=== PATIENT | male | born 1960 | race African-American/Black ===

== ENCOUNTER 2018-04-21 13:04 | Inpatient (IN) | payer OTHER ==
[2018-04-21 14:31] VITALS: BMI 27.7
--- NOTE | 2018-04-21 16:57 | HP ---
CIWA Score - CIWA Score Muscle Tremors: 2 Anxiety: 0-No Anxiety, at Ease Agitation: 0-Normal Activity Paroxysmal Sweats: No Perspiration Orientation: 0-Oriented Tacttile Disturbances: 0-None Auditory Disturbances: 0-None Visual Disturbances: 0-None (says last drink yesterday) Admission [facility] Chief Complaint: "here for detox from crack and beer" Allergies/Adverse Reactions: Allergies Allergy/AdvReac Type Severity Reaction Status Date / Time No Known Allergies Allergy Verified 04/21/18 16:28 History of Present Illness: Pt states drinking 6-8 cans/day of beer, [place], since 2010. Last detox was years ago from alcohol. Says he wants to be do the right thing and not use. Has 2 kids. Says smokes crack cocaine occ, but uses when he has money Exam Limitations: No Limitations - Ebola screening Have you traveled outside of the country in the last 21 days: No Have you had contact with anyone from an Ebola affected area: No Have you been sick,other than usual withdrawal symptoms: No Do you have a fever: No - Review of Systems Constitutional: No Symptoms Reported Patient History - Patient Medical History Hx Anemia: No Hx Asthma: No Hx Chronic Obstructive Pulmonary Disease (COPD): No Hx Cancer: No Hx Cardiac Disorders: No Hx Congestive Heart Failure: No Hx Hypertension: Yes (yes, does not know medication name) Hx Hypercholesterolemia: No Hx Pacemaker: No Hx Seizures: No Hx Dementia: No Hx Diabetes: No Hx Gastrointestinal Disorders: No Hx Liver Disease: No (denies) Hx Genitourinary Disorders: No Hx Sexually Transmitted Disorders: No (denies) Hx Renal Disease (ESRD): No Hx Thyroid Disease: No Hx Human Immunodeficiency Virus (HIV): No (denies, last test 2 years ago- negative) Hx Hepatitis C: No Hx Depression: No Hx Suicide Attempt: No Hx Bipolar Disorder: No Hx Schizophrenia: No - Patient Surgical History Past Surgical History: Yes Hx Neurologic Surgery: No Hx Cataract Extraction: No Hx Cardiac Surgery: No Hx Lung Surgery: No Hx Breast Surgery: No Hx Breast Biopsy: No Hx Abdominal Surgery: No Hx Appendectomy: No Hx Cholecystectomy: No Hx Genitourinary Surgery: No Hx Section: No Hx Orthopedic Surgery: No Other Surgical History: NECK SX- 2017, abscess of neck that was drained Anesthesia Reaction: No - PPD History Previous Implant?: Yes Documented Results: Negative w/o proof PPD to be Administered?: Yes - Reproductive History Patient is a Female of Child Bearing Age (11 -55 yrs old): No - Smoking Cessation Smoking history: Current every day smoker Have you smoked in the past 12 months: Yes Aproximately how many cigarettes per day: 7 Hx Chewing Tobacco Use: No Initiated information on smoking cessation: Yes 'Breaking Loose' booklet given: 04/21/18 - Substance & Tx. History Hx Substance Use: Yes (crack cocaine- amount of use depends on money available) Substance Use Type: Cocaine (cigarett) - Substances Abused Alcohol Route: Oral Frequency: Daily Amount used: BEER- 1 SIX PACK Age of first use: 52 Date of Last Use: 04/21/18 Cocaine Route: Smoking Frequency: Daily Amount used: 7 BAGS Age of first use: 52 Date of Last Use: 04/21/18 Family Disease History - Family Disease History Family History: Unremarkable (pt states no family h/o heart dz, DM) Admission Physical Exam [facility] - Vital Signs Vital Signs: Vital Signs - 24 hr 04/21/18 14:30 Temperature 97.8 F Pulse Rate 83 Respiratory 19 Rate Blood Pressure 165/99 - Physical General Appearance: Yes: Within Normal Limits HEENTM: Yes: Normal ENT Inspection, SHIRA Respiratory: Yes: Lungs Clear Neck: Yes: No masses,lesions,Nodules Cardiology: Yes: Regular Rhythm, Regular Rate, S1, S2 Abdominal: Yes: Non Tender Genitourinary: Yes: Within Normal Limits Back: Yes: Normal Inspection Musculoskeletal: Yes: full range of Motion, Gait Steady Extremities: Yes: Within Normal Limits Neurological: Yes: Within Normal Limits Integumentary: Yes: Within Normal Limits Lymphatic: Yes: Within Normal Limits - Diagnostic (1) Alcohol use disorder Current Visit: Yes Status: Acute (2) Cocaine abuse Current Visit: Yes Status: Acute (3) Cigarette smoker Current Visit: Yes Status: Acute (4) HTN (hypertension) Current Visit: Yes Status: Acute Qualifiers: Hypertension type: unspecified Qualified Code(s): I10 - Essential (primary ) hypertension Comment: pt does not remember medication that he is on Cleared for Admission [facility] - Detox or Rehab Detox Regimen/Protocol: Librium [facility] Breath Alcohol Content Breath Alcohol Content: 0 Urine Drug Screen - Results Drug Screen Negative: No Urine Drug Screen Results: COLTON-Cocaine
[2018-04-21] MEDS ORDERED: MAGNESIUM HYDROX 2400MG/30ML ORAL SUSPENSION 30 ML CUP PO PRN (17:14)
[2018-04-21] MEDS ORDERED: IBUPROFEN 400 MG TABLET (FP) PO PRN (17:14)
[2018-04-21] MEDS ORDERED: chlordiazePOXIDE HCL 25 MG CAPSULE PO ONE (17:14)
[2018-04-21] MEDS ORDERED: MAG HYDROX/AL HYDROX/SIMETH 30 ML UNIT-DOSE CUP PO PRN (17:14)
[2018-04-21] MEDS ORDERED: MAGNESIUM CITRATE 300 ML BOTTLE PO PRN (17:14)
[2018-04-21] MEDS ORDERED: P-EPHED 60MG/TRIPROLIDI 2.5MG TABLET PO PRN (17:14)
[2018-04-21] MEDS ORDERED: chlordiazePOXIDE HCL 25 MG CAPSULE PO PRN (17:14)
[2018-04-21] MEDS ORDERED: ACETAMINOPHEN 325 MG TABLET (FP) PO PRN (17:14)
[2018-04-21] MEDS ORDERED: guaiFENesin/D-METHORPHAN HB 10 ML UNIT-DOSE CUPS PO PRN (17:14)
[2018-04-21] MEDS ORDERED: MENTHOL/PHENOL 1 EACH UD MM PRN (17:14)
[2018-04-21] MEDS ORDERED: LOPERAMIDE HCL 2 MG CAPSULE PO PRN (17:14)
[2018-04-21] MEDS ORDERED: MELATONIN 5 MG TABLETS PO PRN (22:00)
[2018-04-21] MEDS: THIAMINE HCL 100 MG TABLET (FP) PO SCH (22:35)
[2018-04-21] MEDS: chlordiazePOXIDE HCL 25 MG CAPSULE PO SCH (23:55)
[2018-04-22] MEDS: chlordiazePOXIDE HCL 25 MG CAPSULE PO SCH ×4 (05:51→22:19)
[2018-04-22 09:53] LABS: HEMATOCRIT 38.6 % (35.4-49); HEMOGLOBIN 12.7 GM/dL (11.7-16.9); MCH 29.1 pg (25.7-33.7); MCHC 32.9 g/dl (32.0-35.9); MEAN CELL VOLUME 88.6 fl (80-96); MEAN PLT VOLUME 8.6 fl (7.5-11.1); PLATELET COUNT 213 K/MM3 (134-434); RBC 4.35 M/mm3 (4.00-5.60); RDW 15.7 % (11.9-15.9); WHITE BLOOD COUNT 5.5 K/mm3 (4.0-10.0)
[2018-04-22 10:17] LABS: CHLORIDE 110 mmol/L (98-107); POTASSIUM 4.1 mmol/L (3.5-5.1); SODIUM 143 mmol/L (136-145)
[2018-04-22] MEDS: PRENATAL VITAMINS W/ FOLIC ACID TABLET (FP) PO SCH (10:24)
[2018-04-22] MEDS: amLODIPine BESYLATE 5 MG TABLET (FP) PO SCH (10:24)
[2018-04-22 10:30] LABS: ALK PHOS 71 U/L (45-117); ANION GAP 6 (8-16); BILIRUBIN,TOTAL 0.2 mg/dL (0.2-1.0); BLOOD UREA NITROGEN 18 mg/dL (7-18); CALCIUM 8.5 mg/dL (8.5-10.1); CO2 27 mmol/L (21-32); CREATININE 1.4 mg/dL (0.7-1.3); GLUCOSE,RANDOM 184 mg/dL (74-106); SGOT/AST 19 U/L (15-37); SGPT/ALT 22 U/L (12-78); TOT PROT 6.2 g/dl (6.4-8.2)
[2018-04-22 11:50] LABS: SICKLE CELL SCREEN NEGATIVE (NEGATIVE)
--- NOTE | 2018-04-22 14:22 | PN ---
[facility] CIWA - CIWA Score Nausea/Vomitin Muscle Tremors: 3 Anxiety: 3 Agitation: 3 Paroxysmal Sweats: 3 Orientation: 0-Oriented Tacttile Disturbances: 0-None Auditory Disturbances: 0-None Visual Disturbances: 0-None Headache: 0-None Present CIWA-Ar Total Score: 15 S Progress Note (SOAP) Subjective: Sleep disturbance Shakes Sweats Objective: 04/22/18 14:21 A & O x 3 Sleepy, arousable Vital Signs Temperature 97.3 F L 04/22/18 13:10 Pulse Rate 80 04/22/18 13:10 Respiratory Rate 18 04/22/18 13:10 Blood Pressure 114/88 04/22/18 13:10 O2 Sat by Pulse Oximetry (%) Laboratory Last Values WBC 5.5 K/mm3 (4.0-10.0) 04/22/18 07:30 RBC 4.35 M/mm3 (4.00-5.60) 04/22/18 07:30 Hgb 12.7 GM/dL (11.7-16.9) 04/22/18 07:30 Hct 38.6 % (35.4-49) 04/22/18 07:30 MCV 88.6 fl (80-96) 04/22/18 07:30 MCH 29.1 pg (25.7-33.7) 04/22/18 07:30 MCHC 32.9 g/dl (32.0-35.9) 04/22/18 07:30 RDW 15.7 % (11.9-15.9) 04/22/18 07:30 Plt Count 213 K/MM3 (134-434) 04/22/18 07:30 MPV 8.6 fl (7.5-11.1) 04/22/18 07:30 Sickle Cell Screen Negative (NEGATIVE) 04/22/18 07:30 Sodium 143 mmol/L (136-145) 04/22/18 07:30 Potassium 4.1 mmol/L (3.5-5.1) 04/22/18 07:30 Chloride 110 mmol/L (98-107) H 04/22/18 07:30 Carbon Dioxide 27 mmol/L (21-32) 04/22/18 07:30 Anion Gap 6 (8-16) L 04/22/18 07:30 BUN 18 mg/dL (7-18) 04/22/18 07:30 Creatinine 1.4 mg/dL (0.7-1.3) H 04/22/18 07:30 Creat Clearance w eGFR 52.42 (>60) 04/22/18 07:30 Random Glucose 184 mg/dL (74-106) H 04/22/18 07:30 Calcium 8.5 mg/dL (8.5-10.1) 04/22/18 07:30 Total Bilirubin 0.2 mg/dL (0.2-1.0) 04/22/18 07:30 AST 19 U/L (15-37) 04/22/18 07:30 ALT 22 U/L (12-78) 04/22/18 07:30 Alkaline Phosphatase 71 U/L (45-117) 04/22/18 07:30 Total Protein 6.2 g/dl (6.4-8.2) L 04/22/18 07:30 Albumin 3.0 g/dl (3.4-5.0) L 04/22/18 07:30 RPR Titer Nonreactive (NONREACTIVE) 04/22/18 07:30 HIV 1&2 Antibody Screen Negative 04/22/18 07:30 HIV P24 Antigen Negative 04/22/18 07:30 LAbs noted, UA pending Assessment: 04/22/18 14:22 withdrawal sx Plan: continue detox
[2018-04-22 14:38] LABS: URINE APPEARANCE CLEAR; URINE BILIRUBIN NEGATIVE (<2.0 mg/dL); URINE COLOR LTYELLOW; URINE GLUCOSE (UA) NEGATIVE (NEGATIVE); URINE KETONE NEGATIVE (NEGATIVE); URINE LEUK ESTERASE NEGATIVE (NEGATIVE); URINE NITRITE NEGATIVE (NEGATIVE); URINE PROTEIN NEGATIVE (NEGATIVE); URINE UROBILINOGEN NEGATIVE mg/dL (0.2-1.0)
--- NOTE | 2018-04-22 22:12 | EKG ---
Test Reason : Blood Pressure : / mmHG Vent. Rate : 078 BPM Atrial Rate : 078 BPM P-R Int : 156 ms QRS Dur : 098 ms QT Int : 400 ms P-R-T Axes : 067 055 052 degrees QTc Int : 456 ms NORMAL SINUS RHYTHM WITH SINUS ARRHYTHMIA NORMAL ECG NO PREVIOUS ECGS AVAILABLE Confirmed by JACOB WEBB, MIGUELITO ([id number]) on 04/22/2018 10:11:32 PM Referred By: JAYLON LYNN Confirmed By:MIGUELITO JAMES MD
[2018-04-22] MEDS: THIAMINE HCL 100 MG TABLET (FP) PO SCH (22:19)
[2018-04-23] MEDS: chlordiazePOXIDE HCL 25 MG CAPSULE PO SCH ×3 (05:55→17:15)
[2018-04-23] MEDS: amLODIPine BESYLATE 5 MG TABLET (FP) PO SCH (10:21)
[2018-04-23] MEDS: PRENATAL VITAMINS W/ FOLIC ACID TABLET (FP) PO SCH (10:21)
--- NOTE | 2018-04-23 12:02 | PN ---
[facility] CIWA - CIWA Score Nausea/Vomitin-No Nausea/No Vomiting Muscle Tremors: None Anxiety: 4-Mod. Anxious/Guarded Agitation: 4-Moderately Restless Paroxysmal Sweats: 2 Orientation: 0-Oriented Tacttile Disturbances: 2-Mild Itch/Numbness/Burn Auditory Disturbances: 0-None Visual Disturbances: 0-None Headache: 0-None Present CIWA-Ar Total Score: 12 S Progress Note (SOAP) Subjective: Anxious, Sweating, Interrupted Sleep. Objective: PATIENT A & O X 3, OBSERVED AMBULATING ON UNIT. NO ACUTE DISTRESS. 04/23/18 12:02 Vital Signs Temperature 96.6 F L 04/23/18 09:07 Pulse Rate 84 04/23/18 09:07 Respiratory Rate 18 04/23/18 09:07 Blood Pressure 146/90 04/23/18 09:07 O2 Sat by Pulse Oximetry (%) Laboratory Tests 04/21/18 04/22/18 04/22/18 08:54 07:30 07:30 WBC 5.5 RBC 4.35 Hgb 12.7 Hct 38.6 MCV 88.6 MCH 29.1 MCHC 32.9 RDW 15.7 Plt Count 213 MPV 8.6 Sickle Cell Screen Negative Sodium Potassium Chloride Carbon Dioxide Anion Gap BUN Creatinine Creat Clearance w eGFR Random Glucose Calcium Total Bilirubin AST ALT Alkaline Phosphatase Total Protein Albumin Urine Color Ltyellow Urine Appearance Clear Urine pH 5.0 Ur Specific [place] 1.013 Urine Protein Negative Urine Glucose (UA) Negative Urine Ketones Negative Urine Blood Negative Urine Nitrite Negative Urine Bilirubin Negative Urine Urobilinogen Negative Ur Leukocyte Esterase Negative RPR Titer HIV 1&2 Antibody Screen Negative HIV P24 Antigen Negative 04/22/18 04/22/18 07:30 07:30 WBC RBC Hgb Hct MCV MCH MCHC RDW Plt Count MPV Sickle Cell Screen Sodium 143 Potassium 4.1 Chloride 110 H Carbon Dioxide 27 Anion Gap 6 L BUN 18 Creatinine 1.4 H Creat Clearance w eGFR 52.42 Random Glucose 184 H Calcium 8.5 Total Bilirubin 0.2 AST 19 ALT 22 Alkaline Phosphatase 71 Total Protein 6.2 L Albumin 3.0 L Urine Color Urine Appearance Urine pH Ur Specific [place] Urine Protein Urine Glucose (UA) Urine Ketones Urine Blood Urine Nitrite Urine Bilirubin Urine Urobilinogen Ur Leukocyte Esterase RPR Titer Nonreactive HIV 1&2 Antibody Screen HIV P24 Antigen LABS NOTED. HCV AB RESULT PENDING. 04/23/18 12:03 Assessment: 04/23/18 12:03 WITHDRAWAL SYMPTOMS. Plan: CONTINUE DETOX.
[2018-04-23] MEDS: THIAMINE HCL 100 MG TABLET (FP) PO SCH (22:18)
[2018-04-23] MEDS: chlordiazePOXIDE 5 MG CAPSULE PO SCH (22:18)
[2018-04-24] MEDS: chlordiazePOXIDE 5 MG CAPSULE PO SCH ×3 (05:42→18:10)
[2018-04-24] MEDS: PRENATAL VITAMINS W/ FOLIC ACID TABLET (FP) PO SCH (10:17)
[2018-04-24] MEDS: amLODIPine BESYLATE 5 MG TABLET (FP) PO SCH (10:17)
--- NOTE | 2018-04-24 12:54 | PN ---
[facility] Progress Note (SOAP) Subjective: Anxious, Fatigue. Objective: PATIENT A & O X 3. NO ACUTE DISTRESS. 04/24/18 12:53 Vital Signs Temperature 97.3 F L 04/24/18 09:22 Pulse Rate 70 04/24/18 09:22 Respiratory Rate 18 04/24/18 09:22 Blood Pressure 119/75 04/24/18 09:22 O2 Sat by Pulse Oximetry (%) Laboratory Tests 04/21/18 04/22/18 04/22/18 08:54 07:30 07:30 WBC 5.5 RBC 4.35 Hgb 12.7 Hct 38.6 MCV 88.6 MCH 29.1 MCHC 32.9 RDW 15.7 Plt Count 213 MPV 8.6 Sickle Cell Screen Negative Sodium Potassium Chloride Carbon Dioxide Anion Gap BUN Creatinine Creat Clearance w eGFR Random Glucose Calcium Total Bilirubin AST ALT Alkaline Phosphatase Total Protein Albumin Urine Color Ltyellow Urine Appearance Clear Urine pH 5.0 Ur Specific [place] 1.013 Urine Protein Negative Urine Glucose (UA) Negative Urine Ketones Negative Urine Blood Negative Urine Nitrite Negative Urine Bilirubin Negative Urine Urobilinogen Negative Ur Leukocyte Esterase Negative RPR Titer HIV 1&2 Antibody Screen Negative HIV P24 Antigen Negative 04/22/18 04/22/18 07:30 07:30 WBC RBC Hgb Hct MCV MCH MCHC RDW Plt Count MPV Sickle Cell Screen Sodium 143 Potassium 4.1 Chloride 110 H Carbon Dioxide 27 Anion Gap 6 L BUN 18 Creatinine 1.4 H Creat Clearance w eGFR 52.42 Random Glucose 184 H Calcium 8.5 Total Bilirubin 0.2 AST 19 ALT 22 Alkaline Phosphatase 71 Total Protein 6.2 L Albumin 3.0 L Urine Color Urine Appearance Urine pH Ur Specific [place] Urine Protein Urine Glucose (UA) Urine Ketones Urine Blood Urine Nitrite Urine Bilirubin Urine Urobilinogen Ur Leukocyte Esterase RPR Titer Nonreactive HIV 1&2 Antibody Screen HIV P24 Antigen LABS NOTED. Assessment: 04/24/18 12:53 WITHDRAWAL SYMPTOMS. Plan: CONTINUE DETOX. PATIENT SCHEDULED FOR D/C TOMORROW.
[2018-04-24] MEDS: THIAMINE HCL 100 MG TABLET (FP) PO SCH (23:02)
[2018-04-24] MEDS: chlordiazePOXIDE HCL 10 MG CAPSULE PO SCH (23:03)
[2018-04-25] MEDS: chlordiazePOXIDE HCL 10 MG CAPSULE PO SCH (05:58)
[2018-04-25 06:37] VITALS: BP 121/83; PULSE 66; TEMP 97
--- NOTE | 2018-04-25 16:42 | PN ---
[facility] Progress Note (SOAP) Subjective: Patient denies current Detox symptoms and reports that he feels well overall. Objective: PATIENT A & O X 3, OBSERVED AMBULATING ON UNIT. NO ACUTE DISTRESS. 04/25/18 16:40 Vital Signs Temperature 97.0 F L 04/25/18 06:37 Pulse Rate 66 04/25/18 06:37 Respiratory Rate 18 04/25/18 06:37 Blood Pressure 121/83 04/25/18 06:37 O2 Sat by Pulse Oximetry (%) Laboratory Tests 04/21/18 04/22/18 04/22/18 08:54 07:30 07:30 WBC 5.5 RBC 4.35 Hgb 12.7 Hct 38.6 MCV 88.6 MCH 29.1 MCHC 32.9 RDW 15.7 Plt Count 213 MPV 8.6 Sickle Cell Screen Negative Sodium Potassium Chloride Carbon Dioxide Anion Gap BUN Creatinine Creat Clearance w eGFR Random Glucose Calcium Total Bilirubin AST ALT Alkaline Phosphatase Total Protein Albumin Urine Color Ltyellow Urine Appearance Clear Urine pH 5.0 Ur Specific [place] 1.013 Urine Protein Negative Urine Glucose (UA) Negative Urine Ketones Negative Urine Blood Negative Urine Nitrite Negative Urine Bilirubin Negative Urine Urobilinogen Negative Ur Leukocyte Esterase Negative RPR Titer Hep C Ab Diagnostic Liver Fibrosis Interp HIV 1&2 Antibody Screen Negative HIV P24 Antigen Negative 04/22/18 04/22/18 04/23/18 07:30 07:30 11:15 WBC RBC Hgb Hct MCV MCH MCHC RDW Plt Count MPV Sickle Cell Screen Sodium 143 Potassium 4.1 Chloride 110 H Carbon Dioxide 27 Anion Gap 6 L BUN 18 Creatinine 1.4 H Creat Clearance w eGFR 52.42 Random Glucose 184 H Calcium 8.5 Total Bilirubin 0.2 AST 19 ALT 22 Alkaline Phosphatase 71 Total Protein 6.2 L Albumin 3.0 L Urine Color Urine Appearance Urine pH Ur Specific [place] Urine Protein Urine Glucose (UA) Urine Ketones Urine Blood Urine Nitrite Urine Bilirubin Urine Urobilinogen Ur Leukocyte Esterase RPR Titer Nonreactive Hep C Ab Diagnostic <0.1 Liver Fibrosis Interp HIV 1&2 Antibody Screen HIV P24 Antigen LABS NOTED. Assessment: 04/25/18 16:40 COMPLETION OF DETOX REGIMEN. Plan: PATIENT SCHEDULED FOR DISCHARGE FROM DETOX UNIT TODAY.
--- NOTE | 2018-04-25 16:47 | DS ---
[facility] Detox Discharge Summary Admission Date: 04/21/18 Discharge Date: 04/25/18 - History Present History: Alcohol Dependence, Cocaine Dependence Additional Comments: PATIENT GOING HOME TO RETURN TO WORK. PATIENT ADVISED TO CONSIDER LOCAL 12-STEP / AA / NA OUTPATIENT SUPPORT GROUPS FOR AFTERCARE. COPIES OF ALL LAB VALUES DRAWN WHILE ADMITTED FOR DETOX GIVEN TO PATIENT AT TIME OF DISCHARGE FROM DETOX UNIT. PATIENT WAS DISCHARGED FROM DETOX UNIT IN STABLE MEDICAL CONDITION. Pertinent Past History: HTN, Nicotine Dependence. - Physical Exam Results Vital Signs: Vital Signs Temperature 97.0 F L 04/25/18 06:37 Pulse Rate 66 04/25/18 06:37 Respiratory Rate 18 04/25/18 06:37 Blood Pressure 121/83 04/25/18 06:37 O2 Sat by Pulse Oximetry (%) Pertinent Admission Physical Exam Findings: WITHDRAWAL SYMPTOMS. Laboratory Tests 04/21/18 04/22/18 04/22/18 08:54 07:30 07:30 WBC 5.5 RBC 4.35 Hgb 12.7 Hct 38.6 MCV 88.6 MCH 29.1 MCHC 32.9 RDW 15.7 Plt Count 213 MPV 8.6 Sickle Cell Screen Negative Sodium Potassium Chloride Carbon Dioxide Anion Gap BUN Creatinine Creat Clearance w eGFR Random Glucose Calcium Total Bilirubin AST ALT Alkaline Phosphatase Total Protein Albumin Urine Color Ltyellow Urine Appearance Clear Urine pH 5.0 Ur Specific [place] 1.013 Urine Protein Negative Urine Glucose (UA) Negative Urine Ketones Negative Urine Blood Negative Urine Nitrite Negative Urine Bilirubin Negative Urine Urobilinogen Negative Ur Leukocyte Esterase Negative RPR Titer Hep C Ab Diagnostic Liver Fibrosis Interp HIV 1&2 Antibody Screen Negative HIV P24 Antigen Negative 04/22/18 04/22/18 04/23/18 07:30 07:30 11:15 WBC RBC Hgb Hct MCV MCH MCHC RDW Plt Count MPV Sickle Cell Screen Sodium 143 Potassium 4.1 Chloride 110 H Carbon Dioxide 27 Anion Gap 6 L BUN 18 Creatinine 1.4 H Creat Clearance w eGFR 52.42 Random Glucose 184 H Calcium 8.5 Total Bilirubin 0.2 AST 19 ALT 22 Alkaline Phosphatase 71 Total Protein 6.2 L Albumin 3.0 L Urine Color Urine Appearance Urine pH Ur Specific [place] Urine Protein Urine Glucose (UA) Urine Ketones Urine Blood Urine Nitrite Urine Bilirubin Urine Urobilinogen Ur Leukocyte Esterase RPR Titer Nonreactive Hep C Ab Diagnostic <0.1 Liver Fibrosis Interp HIV 1&2 Antibody Screen HIV P24 Antigen LABS NOTED. - Treatment Hospital Course: Detox Protocol Followed, Detoxed Safely, Responded well, Discharged Condition Good Patient has Accepted a Rehab Referral to: PT ADVISED TO CONSIDER LOCAL 12-STEP/ AA/NA OUTPATIENT SUPPORT GROUPS. - Medication Discharge Medications: Ambulatory Orders Amlodipine Besylate 5 mg PO DAILY 04/21/18 - Diagnosis (1) Alcohol dependence with uncomplicated withdrawal Status: Acute (2) Cocaine dependence, uncomplicated Status: Acute (3) HTN (hypertension) Status: Chronic Qualifiers: Hypertension type: unspecified Qualified Code(s): I10 - Essential (primary ) hypertension (4) Nicotine dependence, uncomplicated Status: Chronic Qualifiers: Nicotine product type: cigarettes Qualified Code(s): F17.210 - Nicotine dependence, cigarettes, uncomplicated - AMA Did Patient Leave Against Medical Advice: No
== END 2018-04-25 11:03 | disposition home or self-care (01) | DRG 774 ==
LOC: YASAS 13:04 → Y3N 17:12
PROVIDERS: ADMIT Family Medicine Addiction Medicine; ATTEND Family Medicine Addiction Medicine
PROC: HZ2ZZZZ Detoxification Services for Substance Abuse Treatment (ICD-10-PCS; principal; 2018-04-21)
DX: F10.230 Alcohol dependence with withdrawal, uncomplicated (principal); F14.20 Cocaine dependence, uncomplicated; F17.210 Nicotine dependence, cigarettes, uncomplicated; I10 Essential (primary) hypertension
CPT/HCPCS: 36415; 80053; 81003; 85027; 85660; 86593; 87389; 93005; 93010